=== PATIENT | male | born 1985 | race Caucasian/White ===

== ENCOUNTER 2025-02-27 06:56 | Day surgery (SDC) | payer OTHER, SELFPAY ==
[2025-02-26 09:18] LABS: Anion Gap 11.2 mEq/L (5.0-15.0); BUN Blood Urea Nitrogen 22.0 mg/dL (7-18); Glucose Level 118.0 mg/dL (74-106); Potassium 4.2 mEq/L (3.5-5.1)
[2025-02-27] MEDS: Ringers Lactate 1,000 ML IV ONE (07:15)
[2025-02-27] MEDS: ACETAMINOPHEN 500 MG TAB ONE (07:37)
[2025-02-27] MEDS ORDERED: LIDOCAINE 1% MPF 5 ML VIAL ONE (07:57)
[2025-02-27] MEDS ORDERED: MIDAZOLAM HCL 2 MG/2 ML INJ ONE (07:57)
[2025-02-27] MEDS ORDERED: ONDANSETRON 4 MG/2 ML VIAL ONE (07:57)
[2025-02-27] MEDS ORDERED: FENTANYL CITR 100 MCG/2 ML ONE (07:57)
[2025-02-27] MEDS ORDERED: MORPHINE 10 MG/ML VIAL ONE (09:02)
[2025-02-27] MEDS: BUPIVACAINE 0.5% PF 10 ML VIAL ONE (09:05)
[2025-02-27] MEDS ORDERED: DEXMEDETOMIDINE HCL 200 MCG/2 ML VIAL ONE (10:06)
[2025-02-27] MEDS: HYDROMORPHONE HCL 1 MG/ML INJ ONE ×2 (10:20→10:30)
--- NOTE | 2025-02-27 10:39 | OP ---
Date of Procedure: 02/27/2025 Surgeon: FRANK RUDOLPH Primary Care Physician: Unknown. Preoperative Diagnoses: 1. Chronic tonsillitis. 2. Uvulitis and soft palate hypertrophy. 3. Obstructive sleep apnea with dysphagia. Procedures: 1. Tonsillectomy. 2. Uvulopalatopharyngoplasty. Anesthesia: General endotracheal anesthesia was administered. I also infiltrated approximately 10 m L of 0.25% Marcaine without epinephrine into the soft palate and uvula and bilateral tonsillar fossa. Estimated Blood Loss: Approximately 30 mL. Specimens: Bilateral tonsils. Findings: Bilateral cryptic tonsils 2/4; no adenoidal hypertrophy; Bond type 3 palate with elong ated uvular hypertrophy and soft palate redundancy. Complications: None. Disposition: Stable. The patient tolerated the procedure well. Indication For Procedure: The patient is a pleasant 39-year-old male, who presented to my outpatient clinic with chronic gagging and choking, especially noticed at night with his CPAP mask. The patien t has chronic obstructive sleep apnea and he has had difficulty using the CPAP secondary to the chron ic gagging and choking from his soft palate and uvula. Tonsils were hypertrophied and there was evid ence of exudate suggesting chronic tonsillitis. These were indications to bring the patient to opera tive suite for the above-mentioned procedure. He understood, all questions were answered. Risks cayden vipin benefits and complications were explained in detail and a consent form was signed, which was plac ed in the chart. Description Of Procedure: The patient was transferred from the preoperative holding area to the oper ative suite by Department of Anesthesia, placed on the operating table supine, sedated and intubated in normal fashion. Table was rotated 90 degrees. A shoulder roll was not needed. A McIvor retracto r was introduced to the right oral commissure and directed along the endotracheal tube and suspended from the Coreas stand. Tonsils were removed by retracting the right tonsil superior pole midline with straight Allis clamp and I dissected through the mucosa down the peritonsillar fascial plane with mon opolar electrocautery on the setting of 20 for coagulation and 1 of cutting and I dissected within th e plane whereby the inferior pole was amputated with suction Bovie. Next, the left tonsil was remove d by retracting the superior pole with straight Allis clamp and then I dissected through the mucosa d own the peritonsillar fascial plane with monopolar electrocautery. Dissection continued within the p beau whereby the inferior pole was amputated with suction Bovie. Saline irrigation was introduced th rough the oral cavity and removed with suction Bovie. I injected tonsillar fossa and soft palate wit h approximately 10 mL of 0.25% Marcaine without epinephrine. I then demucosalized the soft palate an d uvula with a #15 blade scalpel and curved Metzenbaum scissors. I had to remove the stump of uvula. I then sutured the uvula superiorly to the apex point of the inverted V incision and multiple deep sutures were placed with 3-0 Vicryl in a simple interrupted fashion. I then reapproximated the mucos a of the tonsillar fossa and the mucosa of the soft palate and uvula with 3-0 Vicryl suture in a simp le interrupted fashion. I did have to release the superior edge of the posterior fascial tissue by c lamping and cutting with curved Metzenbaum in order to suture so that there was little tension. A fl exible orogastric tube was inserted into the esophagus and stomach and all fluid contents were remove d. The patient was de-suspended from the [place] stand. McIvor retractor was removed. The patient's j aw was checked and found to be in proper alignment. He was discharged back to Department of Anesthes ia in stable condition and subsequently transferred to PACU and discharged home on antibiotic and analgesic medication and will follow up in 1 to 2 weeks or sooner if needed. NORTH/JUSTIN Voice ID: [id number] Report ID: [id number]
[2025-02-27] MEDS: ONDANSETRON 4 MG/2 ML VIAL ONE (10:42)
[2025-02-27] MEDS ORDERED: HYDROCODONE/APAP 10/325 TAB PO ONE (11:37)
[2025-02-27] MEDS: HYDROCODONE/APAP 10/325 TAB ONE (11:42)
[2025-02-27 12:23] VITALS: BP 107/61; TEMP 97.4; O2SAT 98
== END 2025-02-27 12:07 | disposition home or self-care (01) ==
LOC: OR 06:56
PROVIDERS: ATTEND Otolaryngology Facial Plastic Surgery
PROC: 0CTPXZZ Resection of Tonsils, External Approach (ICD-10-PCS; principal; 2025-02-27 08:00)
PROC: 0CBNXZZ Excision of Uvula, External Approach (ICD-10-PCS; 2025-02-27 08:00)
DX: J35.1 Hypertrophy of tonsils (principal); J02.9 Acute pharyngitis, unspecified; J39.2 Other diseases of pharynx; K12.2 Cellulitis and abscess of mouth; K13.79 Other lesions of oral mucosa
CPT/HCPCS: 36415; 80048; 88304; 93005; J1100; J1171; J2003; J2250; J2405; J2704; J3010; J7120